=== PATIENT | female | born 1985 | race Caucasian/White ===

== ENCOUNTER 2019-07-29 08:59 | Day surgery (SDC) | payer OTHER ==
[2019-07-29] MEDS ORDERED: CEFAZOLIN 1 GM/50 ML (PMX) 50 ML IVPB ×2 (10:30→12:17)
[2019-07-29] MEDS ORDERED: POLYMYXIN/BACITRACIN 1L IRRIG IRR (10:30)
[2019-07-29] MEDS ORDERED: LIDOCAINE 1%/EPI 30 ML INJ (11:50)
[2019-07-29] MEDS ORDERED: LIDOCAINE 1%/EPI (1:100,000) (MDV) 20 ML INJ (12:00)
[2019-07-29] MEDS ORDERED: MIDAZOLAM 1 MG/ML 2 ML INJ (12:46)
[2019-07-29] MEDS ORDERED: FENTAnyl 50 MCG/ML VIAL (12:46)
== END 2019-07-29 14:52 | disposition home or self-care (01) ==
LOC: SDS 08:59
DX: C50.912 Malignant neoplasm of unspecified site of left female breast (principal)
CPT/HCPCS: 36561; 76942